=== PATIENT | female | born 1980 | race Caucasian/White ===

== ENCOUNTER 2017-04-30 21:22 | Emergency (ER) | payer SELFPAY ==
[~2017-04-30] VITALS: Ht 165.1 cm; Wt 68.0 kg
[2017-04-30 21:40] VITALS: BP 122/78
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
[2017-04-30 22:10] VITALS: BP 122/78
--- NOTE | 2017-05-01 10:28 | Diagnostic Imaging Report ---
Indication: pain Findings: 3 views of the right hand were obtained. Normal bony mineralization and alignment are demonstrated. No acute fractures, erosions, or periosteal reaction are seen. Soft tissues are unremarkable. Impression: No acute findings.
== END 2017-04-30 22:10 | disposition home or self-care (01) ==
LOC: EMR 21:36
DX: S69.91XA Unspecified injury of right wrist, hand and finger(s), initial encounter (principal); Y04.0XXA Assault by unarmed brawl or fight, initial encounter; Y93.9 Activity, unspecified; Y99.9 Unspecified external cause status; M79.644 Pain in right finger(s)
CPT/HCPCS: 99283